=== PATIENT | female | born 2000 | race Caucasian/White ===

== ENCOUNTER 2019-05-15 05:12 | Inpatient (IN) ==
[2019-05-15] MEDS ORDERED: LR 3,000 ML ONE (05:22)
[2019-05-15] MEDS ORDERED: PEPCID PO ONE (05:25)
[2019-05-15] MEDS ORDERED: REGLAN PO ONE (05:25)
[2019-05-15] MEDS ORDERED: KEFZOL 1 GM/D5W 1 GM/50 ML IVPB IV PRN (05:25)
[2019-05-15] MEDS: LR 1,000 ML IV SCH ×2 (05:30→06:30)
[2019-05-15] MEDS ORDERED: BICITRA ONE (05:52)
[2019-05-15 06:10] LABS: URINE SOURCE VOIDED
[2019-05-15 06:12] LABS: BASO# 0.01 X1000 (0.0-0.2); BASO% 0.1 % (0.0-0.8); EOS# 0.11 X1000 (0.0-0.7); EOS% 0.8 % (0.0-10.0); HEMOGLOBIN 11.3 g/dL (12.0-16.0); IMM GRAN# 0.06 X1000 (0.0-0.04); IMM GRAN% 0.4 % (0.0-0.5); LYMPH# 2.45 X1000 (1.2-3.4); LYMPH% 16.8 % (20.5-51.1); MCH 26.8 PG (27-31); MCHC 31.4 g/dL (33-37); MCV 85.3 FL (81-99); MONO# 0.92 X1000 (0.11-0.59); MONO% 6.3 % (1.7-9.3); MPV 10.6 FL (7.4-10.4); NEUT# 11.01 X1000 (1.4-6.5); NEUT% 75.6 % (42.2-75.2); PLT 284 X1000 (130-400); RBC 4.22 XMIL (4.2-5.4); RDW 16.4 % (11.5-14.5); WBC 14.56 X1000 (4.8-10.8)
[2019-05-15 06:14] LABS: BILIRUBIN URINE NEGATIVE (NEGATIVE); BLOOD URINE NEGATIVE (NEGATIVE); CLARITY CLEAR (CLEAR); COLOR YELLOW; GLUCOSE URINE NEGATIVE (NEGATIVE); KETONE URINE NEGATIVE (NEGATIVE); LEUKOCYTES URINE TRACE (NEGATIVE); NITRITE URINE NEGATIVE (NEGATIVE); PH URINE 6.5; PROTEIN URINE NEGATIVE (NEGATIVE); UROBILINOGEN URINE NORMAL
[2019-05-15 06:25] LABS: UR AMPHETAMINES QUAL NONE DETECTED (NONE DETECT); UR BARBITUATES QUAL NONE DETECTED (NONE DETECT); UR BENZODIAZEPIN QUAL NONE DETECTED (NONE DETECT); UR CANNABINOIDS QUAL NONE DETECTED (NONE DETECT); UR COCAINE QUAL NONE DETECTED (NONE DETECT); UR METHADONE QUAL NONE DETECTED (NONE DETECT); UR METHAMPHETAMINE QUAL NONE DETECTED (NONE DETECT); UR OPIATES QUAL NONE DETECTED (NONE DETECT); UR OXYCODONE QUAL NONE DETECTED (NONE DETECT); UR PCP QUAL NONE DETECTED (NONE DETECT); UR PROPOXYPHENE QUAL NONE DETECTED (NONE DETECT); UR TCA QUAL NONE DETECTED (NONE DETECT)
[2019-05-15] MEDS ORDERED: DURAMORPH ONE (06:54)
[2019-05-15] MEDS ORDERED: LR 0 ML ONE (07:11)
--- NOTE | 2019-05-15 07:15 | HISTORY AND PHYSICAL ---
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 Her care is also significant for anemia. PAST MEDICAL HISTORY: Significant for the HSV as noted above. PAST SURGICAL HISTORY: She had a left ovarian cystectomy, also surgery for genital warts and polyps removed from her uterus as well as dental surgery. PAST OBSTETRIC HISTORY: G1, P0. She will be 39 and 2/7th weeks on her scheduled date of section on 05/15/2019. GYNECOLOGICAL HISTORY: Menarche at age 10. REVIEW OF SYSTEMS: All systems reviewed and noncontributory except for the history of HSV. FAMILY HISTORY: Significant for lung cancer. SOCIAL HISTORY: Tobacco use: She reports 3 cigarettes per day. Alcohol use none. MEDICATIONS: Valtrex, vitamins, and iron. ALLERGIES: No known drug allergies. PHYSICAL EXAMINATION: VITAL SIGNS: Height 5 feet 2 inches, weight 176 pounds, blood pressure 120/72, pulse of 72, respirations 20. heart rate 129. HEENT: Pupils equal, round, reactive to light and accommodation. Extraocular movements intact. Oropharynx clear. NECK: Supple. No thyromegaly. LUNGS: Clear to auscultation. HEART: Regular rate and rhythm. ABDOMEN: Gravid, nontender. EXTREMITIES: No clubbing, cyanosis, or edema noted. NEUROLOGIC: Cranial nerves II through XII grossly intact. Motor 5/5. 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 Patient counseled about the risks of surgery including bleeding, infection, bowel or bladder injury. cc: Richard Kramer III, MD
[2019-05-15] MEDS ORDERED: ROBINUL ONE (08:02)
[2019-05-15] MEDS ORDERED: NEO-SYNEPHRINE ONE (08:02)
[2019-05-15] MEDS ORDERED: TORADOL ONE (08:02)
[2019-05-15] MEDS ORDERED: ZOFRAN ONE (08:02)
[2019-05-15] MEDS ORDERED: PITOCIN IM PRN (08:12)
[2019-05-15] MEDS ORDERED: AMBIEN PO PRN (08:12)
[2019-05-15] MEDS ORDERED: PITOCIN 20 UNITS/NS 20 UNITS/1,000 ML IV.SOLN IV ONE (08:12)
[2019-05-15] MEDS ORDERED: DEMEROL PO PRN ×2 (08:12)
[2019-05-15] MEDS ORDERED: DEMEROL IM PRN (08:12)
[2019-05-15] MEDS ORDERED: BOOSTRIX VACCINE IM ONE (08:12)
[2019-05-15] MEDS ORDERED: PHENERGAN IM PRN (08:12)
[2019-05-15] MEDS ORDERED: NORCO-5 PO PRN (08:12)
[2019-05-15] MEDS ORDERED: M-M-R II VACCINE SUBQ ONE (08:12)
[2019-05-15] MEDS ORDERED: ATARAX PO PRN (08:12)
[2019-05-15] MEDS ORDERED: DULCOLAX PR PRN (08:12)
[2019-05-15] MEDS ORDERED: MYLICON PO PRN (08:12)
[2019-05-15] MEDS ORDERED: HYDROXYZINE IM PRN (08:12)
--- NOTE | 2019-05-15 09:00 | OPERATIVE NOTE ---
PROCEDURE DATE: 05/15/2019 PREOPERATIVE DIAGNOSIS: Intrauterine at 39 and 2/7 weeks with recurrent HSV, for elective section. POSTOPERATIVE DIAGNOSES: 1. Intrauterine at 39 and 2/7 weeks with recurrent HSV, for elective section. 2. Operative delivery of a male infant, 8 pounds 0 ounces with Apgars of 9 and 10 at 07:21 on 05/15/2019. PROCEDURE: Primary low-transverse section. SURGEON: Richard Kramer III, MD. REGISTERED PUBLIC SURVEYOR: ORT. ANESTHESIA: Spinal, Dr. Rocha. FINDINGS: Normal-appearing uterus, tubes, and ovaries. COMPLICATIONS: None. ESTIMATED BLOOD LOSS: 500 mL. SPECIMENS REMOVED: None. DRAINS: Starr to straight drain. COUNTS: All counts were correct x3. INDICATIONS: Patient is a 18-year-old white female, G1, P0 at 39 and 2/7 weeks, who has been battling recurrent HSV infections throughout and due to this problem, we have opted to proceed with operative delivery. Patient counseled about the risks of surgery including bleeding, infection, bowel or bladder injury. DESCRIPTION OF PROCEDURE: The patient was taken to OR, had spinal anesthesia placed. She was then placed in dorsal lithotomy position with a roll under her right hip. She was then prepped and draped in sterile fashion with placement of Starr catheter. Adequate anesthesia was noted by using Allis clamps on the skin and then a Pfannenstiel skin incision was made on the lower abdomen using a scalpel. This was taken down sharply to the fascial layer. A small lorri was made in the rectus fascia. Fascial incision was made and then extended bilaterally with curved Santos scissors. Then blunt and sharp dissection of the superior and inferior aspects of the rectus fascia was then performed and the rectus muscles were divided in the midline. Peritoneal layer was entered bluntly. The peritoneal incision was extended superiorly and inferiorly with care taken to avoid the bladder. Bladder blade was placed into the abdominal cavity. The bladder reflection was created using Metzenbaum scissors and then bladder blade was replaced back into the abdominal cavity. A transverse incision was made on the lower uterine segment using a scalpel. Clear fluid was noted upon entry into the uterine cavity and then surgeon's fingers expanded the hysterotomy incision bilaterally. The head was then elevated toward the hysterotomy site and with gentle fundal pressure, the head was delivered atraumatically. The fetus was then bulb suctioned in the nose and mouth and then the rest of the body was delivered atraumatically with gentle fundal pressure. Umbilical cord was clamped twice and cut. Infant handed to nursery nurse in attendance for delivery. Cord blood sample was obtained at this time. Placenta was then manually extracted. The uterus was exteriorized. Wet lap was placed around the uterus. Dry lap was then used to curette the uterine cavity of clots and debris. Then the uterine incision was closed using 0 chromic in a running locking fashion x1. Good hemostasis was noted. The posterior cul-de-sac was irrigated copiously using saline. Then the uterus was replaced back into the abdominal cavity. Pericolic gutters were cleansed using moist lap sponges. The uterine incision and bladder reflection were inspected and good hemostasis was noted. The peritoneal layer was closed using 2-0 chromic in a running fashion x1. The fascia layer was then closed using 0 PDS in a running fashion x1. Subcutaneous layer was then irrigated copiously and electrocautery was used to obtain hemostasis. The skin was then reapproximated using matthew. The patient tolerated the procedure well and was taken to the recovery room in stable condition. All counts were correct x3. cc: Richard Kramer III, MD
[2019-05-15] MEDS: NORCO-10 PO PRN (12:02)
[2019-05-15] MEDS: MYLICON PO SCH ×3 (12:02→20:19)
[2019-05-15] MEDS: PITOCIN 10 UNITS/NS 1,000 ML IV SCH (16:20)
[2019-05-15] MEDS: TORADOL IV SCH ×2 (19:51→20:11)
[2019-05-15] MEDS: PERICOLACE PO SCH (20:13)
[2019-05-16] MEDS: PITOCIN 10 UNITS/NS 1,000 ML IV SCH (00:05)
[2019-05-16] MEDS: TORADOL IV SCH (02:53)
[2019-05-16 06:43] LABS: BASO# 0.02 X1000 (0.0-0.2); BASO% 0.1 % (0.0-0.8); EOS# 0.09 X1000 (0.0-0.7); EOS% 0.6 % (0.0-10.0); HEMATOCRIT 34.4 % (37.0-47.0); HEMOGLOBIN 10.6 g/dL (12.0-16.0); IMM GRAN# 0.05 X1000 (0.0-0.04); IMM GRAN% 0.3 % (0.0-0.5); LYMPH# 2.12 X1000 (1.2-3.4); LYMPH% 14.8 % (20.5-51.1); MCH 26.8 PG (27-31); MCHC 30.8 g/dL (33-37); MCV 86.9 FL (81-99); MONO# 1.01 X1000 (0.11-0.59); MONO% 7.1 % (1.7-9.3); MPV 10.8 FL (7.4-10.4); NEUT# 11.01 X1000 (1.4-6.5); NEUT% 77.1 % (42.2-75.2); PLT 259 X1000 (130-400); RBC 3.96 XMIL (4.2-5.4); RDW 16.6 % (11.5-14.5)
--- NOTE | 2019-05-16 07:58 | OB/GYN PROGRESS NOTE ---
Progress Note OB - . OB Progress Note: Vital Signs - 24 hr 05/15/19 08:00 05/15/19 08:10 05/15/19 08:20 Temperature Pulse Rate 74 70 80 Respiratory Rate 18 18 16 Blood Pressure Blood Pressure [Right Arm] 85/42 80/39 85/43 O2 Sat by Pulse Oximetry 98 98 99 05/15/19 08:30 05/15/19 08:40 05/15/19 08:50 Temperature Pulse Rate 68 70 80 Respiratory Rate 16 18 18 Blood Pressure Blood Pressure [Right Arm] 85/44 85/52 86/48 O2 Sat by Pulse Oximetry 99 100 99 05/15/19 09:00 05/15/19 11:00 05/15/19 15:00 Temperature 97.3 F L Pulse Rate 73 67 74 Respiratory Rate 16 16 18 Blood Pressure 92/54 95/52 100/54 Blood Pressure [Right Arm] 92/54 O2 Sat by Pulse Oximetry 98 100 98 05/15/19 19:49 05/15/19 23:54 05/16/19 04:08 Temperature 97.1 F L 97.0 F L 96.3 F L Pulse Rate 70 77 79 Respiratory Rate 18 18 18 Blood Pressure 100/49 111/58 99/55 Blood Pressure [Right Arm] O2 Sat by Pulse Oximetry 100 98 98 05/16/19 07:07 Temperature 97.7 F Pulse Rate 75 Respiratory Rate 20 Blood Pressure 102/54 Blood Pressure [Right Arm] O2 Sat by Pulse Oximetry 97 Laboratory Results - last 24 hr 05/16/19 05:17 WBC 14.30 H RBC 3.96 L Hgb 10.6 L Hct 34.4 L MCV 86.9 MCH 26.8 L MCHC 30.8 L RDW Std Deviation 16.6 H Plt Count 259 MPV 10.8 H Immature Gran % (Auto) 0.3 Neut % (Auto) 77.1 H Lymph % (Auto) 14.8 L [place] % (Auto) 7.1 Eos % (Auto) 0.6 Baso % (Auto) 0.1 Immature Gran # (Auto) 0.05 H Neut # (Auto) 11.01 H Lymph # (Auto) 2.12 [place] # (Auto) 1.01 H Eos # (Auto) 0.09 Baso # (Auto) 0.02 Pt doing well pain well controlled. no N/V +flatus no BM yet. nikia not removed yet O: Vitals as above Gen: AAOx3 NAD CV: RRR no g/m/r Lungs: CTAB no g/m/r Abd: +BS soft laverne tender incision with bandage over it no strikethrough Ext: no c/c/e CBC as above A: POD#1 s/p PLTCS HSV P: Routine post-op mgmt
[2019-05-16] MEDS ORDERED: LR 1,000 ML IV SCH (08:12)
[2019-05-16] MEDS: MYLICON PO SCH ×5 (08:59→20:47)
[2019-05-16] MEDS: NORCO-10 PO PRN ×3 (09:09→20:47)
[2019-05-16] MEDS: MOTRIN PO PRN ×2 (09:09→17:04)
[2019-05-16] MEDS: PERICOLACE PO SCH (20:47)
[2019-05-17] MEDS: MOTRIN PO PRN ×2 (00:46→09:18)
[2019-05-17] MEDS: NORCO-10 PO PRN ×2 (04:52→11:59)
--- NOTE | 2019-05-17 07:30 | OB/GYN PROGRESS NOTE ---
Progress Note OB - . OB Progress Note: Vital Signs - 24 hr 05/16/19 11:02 05/16/19 13:03 05/16/19 15:16 Temperature 97.2 F L 96.7 F L Pulse Rate 95 H 77 83 Respiratory Rate 20 20 20 Blood Pressure 114/56 108/58 121/59 O2 Sat by Pulse Oximetry 98 96 95 05/16/19 20:33 05/17/19 00:43 05/17/19 04:53 Temperature 96.9 F L 96.9 F L 96.4 F L Pulse Rate 94 H 79 66 Respiratory Rate 18 18 18 Blood Pressure 109/53 108/52 115/58 O2 Sat by Pulse Oximetry 97 96 99 No complaints, pain controlled, ambulating, tolerating po intake, + flattus A&O NAD CTAB RRR S/ND/Fundus firm, appropriate post op discomfort Incision C/D/I without E/E/I No C/C/E POD 2 s/p primary LTCS doing well - ambulate - post op care - anticipate D/C home Tuesday.
[2019-05-17] MEDS: MYLICON PO SCH ×2 (09:20→12:00)
--- NOTE | 2019-05-17 11:51 | OB/GYN PROGRESS NOTE ---
Progress Note OB - . OB Progress Note: Vital Signs - 24 hr 05/16/19 13:03 05/16/19 15:16 05/16/19 20:33 Temperature 97.2 F L 96.7 F L 96.9 F L Pulse Rate 77 83 94 H Respiratory Rate 20 20 18 Blood Pressure 108/58 121/59 109/53 O2 Sat by Pulse Oximetry 96 95 97 05/17/19 00:43 05/17/19 04:53 05/17/19 09:05 Temperature 96.9 F L 96.4 F L 96.9 F L Pulse Rate 79 66 84 Respiratory Rate 18 18 16 Blood Pressure 108/52 115/58 127/56 O2 Sat by Pulse Oximetry 96 99 98 Patient is requesting discharge home today. I counseled her that I recommend 72 hours following primary C/S. Patient voiced complete understanding but is still requesting discharge. Patient will be discharged home with strong warnings.
[2019-05-17 12:51] VITALS: BP 116/68
== END 2019-05-17 14:45 | disposition home or self-care (01) | DRG 788 ==
LOC: P.LD 05:12
PROVIDERS: ADMIT Obstetrics & Gynecology; ATTEND Obstetrics & Gynecology